=== PATIENT | female | born 1975 | race Caucasian/White ===

== ENCOUNTER 2017-03-12 18:34 | Inpatient (IN) | payer OTHER ==
[~2017-03-12] VITALS: Ht 149.9 cm; Wt 72.8 kg
[2017-03-12] MEDS ORDERED: PRILOSEC20 MG PO (19:25)
[2017-03-12 22:00] VITALS: BP 125/75
[2017-03-12 23:30] VITALS: BP 168/71
[2017-03-13 03:11] VITALS: BP 140/78
[2017-03-13 06:52] LABS: MCH 32.9 PG (29.0-34.0); MCHC 34.1 G/DL (30.0-36.0); MCV 96.3 FL (83-99); MEAN PLAT.VOLUME 10.4 uM^3 (9.5-12.4); PLATELET COUNT 312 K/uL (156-360); RBC DIS.WIDTH-CV 12.5 % (11.8-14.6); RBC DIS.WIDTH-SD 44.1 % (39-53); RED BLOOD COUNT 3.53 M/uL (3.80-5.20)
[2017-03-13 07:11] LABS: ANION GAP 8 MEQ/L (2-14); CHLORIDE 113 MEQ/L (99-109); GFR ESTIMATE (CALCULATED) > 59 mL/min/; GLUCOSE 102 mg/dL (70-99); POTASSIUM 3.3 MEQ/L (3.7-5.4); SAMPLE HEMOLYSIS CHECK 0; SAMPLE ICTERIC CHECK 0; SAMPLE LIPEMIA CHECK 0; SODIUM 142 MEQ/L (136-147); UREA NITROGEN (BUN) 5 mg/dL (9-23)
[2017-03-13 07:30] VITALS: BP 131/64
[2017-03-13 10:34] LABS: C DIFF TOXIN NEGATIVE (NEGATIVE); PROBE CHECK PASS; SPECIMEN PROCESSING CONTROL PASS
[2017-03-13 12:45] VITALS: BP 145/72
[2017-03-13 15:13] VITALS: BP 153/88
[2017-03-13 22:45] VITALS: BP 147/79
[2017-03-14 06:19] LABS: HEMATOCRIT 34.1 % (36.0-46.0); MCH 33.1 PG (29.0-34.0); MCHC 34.3 G/DL (30.0-36.0); MCV 96.6 FL (83-99); MEAN PLAT.VOLUME 10.4 uM^3 (9.5-12.4); PLATELET COUNT 273 K/uL (156-360); RBC DIS.WIDTH-CV 12.3 % (11.8-14.6); RBC DIS.WIDTH-SD 43.6 % (39-53); RED BLOOD COUNT 3.53 M/uL (3.80-5.20); WHITE BLOOD COUNT 9.6 K/uL (4.1-10.2)
[2017-03-14 06:58] LABS: ANION GAP 8 MEQ/L (2-14); CHLORIDE 109 MEQ/L (99-109); GFR ESTIMATE (CALCULATED) > 59 mL/min/; GLUCOSE 92 mg/dL (70-99); POTASSIUM 3.7 MEQ/L (3.7-5.4); SAMPLE HEMOLYSIS CHECK 0; SAMPLE ICTERIC CHECK 0; SAMPLE LIPEMIA CHECK 0; SODIUM 141 MEQ/L (136-147); UREA NITROGEN (BUN) 6 mg/dL (9-23)
[2017-03-14 08:05] VITALS: BP 146/78
[2017-03-14] MEDS ORDERED: CIPROFLOXACIN500 M1 PO (09:16)
[2017-03-14] MEDS ORDERED: BENTYL20 MG PO (09:16)
[2017-03-14] MEDS ORDERED: METRONIDAZOLE500 MG PO (09:16)
== END 2017-03-14 09:58 | disposition home or self-care (01) | DRG 392 ==
LOC: EME → EDBD 18:34 → 2EAST 20:27 → EDOF 20:27 → ENRESERV 20:28 → 2EAST 21:54
PROVIDERS: Hospitalist
DX: K52.89 Other specified noninfective gastroenteritis and colitis (principal); K22.70 Barrett's esophagus without dysplasia; E87.6 Hypokalemia; E66.9 Obesity, unspecified; Z68.32 Body mass index [BMI] 32.0-32.9, adult; K21.9 Gastro-esophageal reflux disease without esophagitis; K44.9 Diaphragmatic hernia without obstruction or gangrene; F17.200 Nicotine dependence, unspecified, uncomplicated; Z87.441 Personal history of nephrotic syndrome; Z87.442 Personal history of urinary calculi; Z90.710 Acquired absence of both cervix and uterus; Z82.49 Family history of ischemic heart disease and other diseases of the circulatory system
CPT/HCPCS: 80048; 80053; 81003; 83605; 83690; 84702; 85027; 87493; 87506; 99281; 99285; J0744; J2270; J2405; J7030; S0030

== ENCOUNTER 2017-03-18 10:47 | Observation (INO) | payer OTHER ==
[~2017-03-18] VITALS: Ht 149.9 cm; Wt 70.4 kg
[~2017-03-18 10:47] MED LIST: BENTYL20 MG PO; CIPROFLOXACIN500 M1 PO; METRONIDAZOLE500 MG PO; PRILOSEC20 MG PO
[2017-03-18 11:26] LABS: MCH 33.6 PG (29.0-34.0); MCHC 36.3 G/DL (30.0-36.0); MCV 92.8 FL (83-99); MEAN PLAT.VOLUME 9.9 uM^3 (9.5-12.4); PLATELET COUNT 425 K/uL (156-360); RBC DIS.WIDTH-CV 12.3 % (11.8-14.6); RBC DIS.WIDTH-SD 42.4 % (39-53); RED BLOOD COUNT 4.31 M/uL (3.80-5.20)
[2017-03-18 11:35] LABS: CHLORIDE 106 mEq/L (99-109); POTASSIUM 3.4 mEq/L (3.7-5.4); SODIUM 140 mEq/L (136-147)
[2017-03-18 11:38] LABS: GLUCOSE 135 mg/dL (70-99)
[2017-03-18 11:39] LABS: ANION GAP 15 MEQ/L (2-14)
[2017-03-18 11:40] LABS: TOTAL BILIRUBIN 0.3 mg/dL (0.0-1.0)
[2017-03-18 11:41] LABS: ALKALINE PHOSPHATASE 106 IU/L (3-129); GFR ESTIMATE (CALCULATED) > 59 mL/min/
[2017-03-18 11:42] LABS: UREA NITROGEN (BUN) 7 mg/dL (9-23)
[2017-03-18 11:45] LABS: LIPASE 17 U/L (1.0-51.0)
[2017-03-18 11:46] LABS: ADD MIUA? YES; BILIRUBIN NEGATIVE; BLOOD MODERATE; COLOR YELLOW ((YELLOW)); GLUCOSE (STRIP) NEGATIVE; KETONES 5; LEUKOCYTES NEGATIVE; NITRITE NEGATIVE; PROTEIN (STRIP) 100; SPECIFIC GRAVITY 1.018 (1.000-1.030); UROBILINOGEN 0.2 MG/DL (0.2-1.0)
[2017-03-18 11:51] LABS: QUANTITATIVE HCG < 4.0 MIU/ML
[2017-03-18 11:54] LABS: BACTERIA NONE SEEN /HPF; EPITHELIAL CELLS NONE SEEN /HPF; MUCUS TRACE /LPF; RED BLOOD CELLS TNTC /HPF (0-5); UCUL ADDED? YES; WHITE BLOOD CELLS 0-5 /HPF (0-5)
[2017-03-18 17:27] VITALS: BP 135/107
[2017-03-18 20:06] VITALS: BP 135/81
[2017-03-18 23:54] VITALS: BP 148/70
[2017-03-19 05:19] LABS: HEMATOCRIT 40.2 % (36.0-46.0); MCH 32.4 PG (29.0-34.0); MCHC 34.1 G/DL (30.0-36.0); MEAN PLAT.VOLUME 10.2 uM^3 (9.5-12.4); PLATELET COUNT 375 K/uL (156-360); RBC DIS.WIDTH-CV 12.7 % (11.8-14.6); RBC DIS.WIDTH-SD 44.3 % (39-53); RED BLOOD COUNT 4.23 M/uL (3.80-5.20); WHITE BLOOD COUNT 11.7 K/uL (4.1-10.2)
[2017-03-19 06:03] LABS: ALKALINE PHOSPHATASE 82 IU/L (3-129); ANION GAP 10 MEQ/L (2-14); CHLORIDE 109 MEQ/L (99-109); GFR ESTIMATE (CALCULATED) > 59 mL/min/; GLUCOSE 113 mg/dL (70-99); POTASSIUM 3.5 MEQ/L (3.7-5.4); SAMPLE HEMOLYSIS CHECK 0; SAMPLE ICTERIC CHECK 0; SAMPLE LIPEMIA CHECK 0; SODIUM 141 MEQ/L (136-147); TOTAL BILIRUBIN 0.6 MG/DL (0.0-1.0); UREA NITROGEN (BUN) 6 mg/dL (9-23)
[2017-03-19 09:35] VITALS: BP 145/80
[2017-03-19] MEDS ORDERED: CIPROFLOXACIN500 M1 PO (13:58)
[2017-03-19] MEDS ORDERED: METRONIDAZOLE500 MG PO (13:58)
[2017-03-19] MEDS ORDERED: PRILOSEC20 MG PO (13:59)
[2017-03-19 15:21] VITALS: BP 198/93
[2017-03-19 17:47] VITALS: BP 129/92
[2017-03-19 20:00] VITALS: BP 144/80
[2017-03-19 23:32] VITALS: BP 147/70
[2017-03-20 07:24] VITALS: BP 143/86
[2017-03-20] MEDS ORDERED: COMPAZINE10 MG PO (09:32)
== END 2017-03-20 10:28 | disposition home or self-care (01) ==
LOC: EME 10:47 → 5WEST 16:17 → EDOF 16:17 → ENRESERV 16:21 → 5WEST 17:13
PROVIDERS: Nurse Practitioner Family; Physician Assistant
DX: K51.00 Ulcerative (chronic) pancolitis without complications (principal); E86.0 Dehydration; E87.6 Hypokalemia; K22.70 Barrett's esophagus without dysplasia; K29.60 Other gastritis without bleeding; K44.9 Diaphragmatic hernia without obstruction or gangrene; I10 Essential (primary) hypertension; F41.9 Anxiety disorder, unspecified; R31.29 Other microscopic hematuria; Z87.442 Personal history of urinary calculi; K21.9 Gastro-esophageal reflux disease without esophagitis; Z83.79 Family history of other diseases of the digestive system; Z82.49 Family history of ischemic heart disease and other diseases of the circulatory system; Z83.49 Family history of other endocrine, nutritional and metabolic diseases; F17.210 Nicotine dependence, cigarettes, uncomplicated; Z90.710 Acquired absence of both cervix and uterus; Z90.721 Acquired absence of ovaries, unilateral; Z88.0 Allergy status to penicillin; Z88.2 Allergy status to sulfonamides; Z88.5 Allergy status to narcotic agent; Z91.041 Radiographic dye allergy status
CPT/HCPCS: 74020; 74176; 76770; 80053; 81003; 83690; 84702; 85027; 87086; 87502; 88305; 88342 TC; 99281; 99285; C9113; G0378; J0360; J0744; J0780; J1170; J1200; J1885; J2060; J2250; J2405; J2765; J3480; J7030; J7050; S0030

== ENCOUNTER → 2017-08-10 | Outpatient (CLI) | payer OTHER ==
[~2017-08-10] MED LIST changes: +COMPAZINE10 MG PO
== END | disposition home or self-care (01) ==
LOC: NUC 07:06
DX: E05.90 Thyrotoxicosis, unspecified without thyrotoxic crisis or storm (principal)
CPT/HCPCS: 78014; 78999; A9516